=== PATIENT | male | born 1975 | race Caucasian/White ===

== ENCOUNTER 2018-11-12 22:14 | Emergency (ER) | payer OTHER ==
[~2018-11-12] VITALS: Ht 167.6 cm; Wt 84.1 kg
[2018-11-12 22:20] VITALS: Ht 167.6 cm; Wt 84.1 kg
[2018-11-13] MEDS ORDERED: HYDROCODONE/APAP (5/325) TAB PO ONE (00:30)
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
[2018-11-13] MEDS ORDERED: IBUP-1542 PO (01:56)
[2018-11-13 02:18] VITALS: BP 155/94; PULSE 65; RESP 18
== END 2018-11-13 02:19 | disposition home or self-care (01) ==
LOC: FTE 22:14
DX: R07.81 Pleurodynia (principal)
CPT/HCPCS: 71046; 71100; Z7502; Z7610